=== PATIENT | male | born 1985 | race Caucasian/White ===

== ENCOUNTER 2024-12-29 09:48 | Emergency (ER) | payer MEDICAID, SELFPAY ==
[2024-12-29 10:04] VITALS: BP 120/82; PULSE 77; TEMP 36.8; O2SAT 97; BMI 21.3
--- NOTE | 2024-12-29 10:18 | ED.GENADUL1 ---
HPI HPI - General Adult General Chief complaint: Nausea/Vomiting/Diarrhea Stated complaint: HEADACHE POSSIBLE FLU LIKE SYMPTOMS Time Seen by Provider: 12/29/24 09:58 Source: patient Mode of arrival: walk-in Limitations: no limitations History of Present Illness HPI narrative: 39-year-old male presents for a complaint of nausea and a toothache. The nausea started 3 days ago and he had some diarrhea and some vomiting which is improved. He now has dental pain and notes that he has a bad tooth on his left lower dentition. He has a dentist but has not contacted them. He also missed work. Related Data Previous Rx's ?Medication ?Instructions ?Recorded clindamycin HCl 300 mg capsule 300 mg PO Q6H 10 days #40 caps 12/29/24 ondansetron 4 mg disintegrating 4 mg PO Q6H PRN nausea and 12/29/24 tablet vomiting #20 tabs Allergies Allergy/AdvReac Type Severity Reaction Status Date / Time Penicillins Allergy Intermediate Hives Verified 12/29/24 10:04 Opioid HPI Opioid Management Most Recent Opioid Data: No Data to Display Review of Systems ROS Narrative A ten point review of systems is negative except as noted above. PFSH PFSH Social History Little interest or pleasure in doing things: not at all Feeling down, depressed, or hopeless: not at all Exam Narrative Exam Narrative: Nurses note and vital signs reviewed and patient is not hypoxic. General: The patient appears well and in no apparent distress. Patient is resting comfortably on cart. Skin: Warm, dry, no pallor noted. There is no rash noted. Head: Normocephalic, atraumatic Eye: Normal conjunctiva, no drainage Ears, Nose, Mouth, and Throat: oral mucosa is moist. Nares patent. Many of his teeth have already been removed. Left lower dentition shows an area of erythema to the gingiva and erosion of the tooth down to the gumline. No bleeding or pus present and no swelling to the floor of his mouth. Cardiovascular: Regular Rate and Rhythm Respiratory: Patient is in no distress, no accessory muscle use, lungs are clear to auscultation, no wheezing, rales or rhonchi Back: non-tender GI: Soft and nontender Musculoskeletal: The patient has no evidence of calf tenderness, no pitting edema, symmetrical pulses noted bilaterally Neurological: A&O, normal speech Psychiatric: Cooperative Constitutional Vital Signs, click to edit/add: Last Vital Signs Temp 98.2 F 12/29/24 10:04 Pulse 77 12/29/24 10:04 Resp 18 12/29/24 10:04 BP 120/82 12/29/24 10:04 Pulse Ox 97 12/29/24 10:04 O2 Del Method Room Air 12/29/24 10:04 Course Vital Signs Vital signs: Vital Signs Temperature 98.2 F 12/29/24 10:04 Pulse Rate 77 12/29/24 10:04 Respiratory Rate 18 12/29/24 10:04 Blood Pressure 120/82 12/29/24 10:04 Pulse Oximetry 97 12/29/24 10:04 Oxygen Delivery Method Room Air 12/29/24 10:04 Temperature 98.2 F 12/29/24 10:04 Pulse Rate 77 12/29/24 10:04 Respiratory Rate 18 12/29/24 10:04 Blood Pressure 120/82 12/29/24 10:04 Pulse Oximetry 97 12/29/24 10:04 Oxygen Delivery Method Room Air 12/29/24 10:04 Medical Decision Making MDM Narrative Medical decision making narrative: He was prescribed Zofran and clindamycin and was urged to follow-up with his dentist. He was also given a work note. Treatment diagnosis and follow-up were discussed with the patient. Differential Diagnosis Differential Diagnosis: Viral illness, dental infection Discharge Plan Discharge Chief Complaint: Nausea/Vomiting/Diarrhea Clinical Impression: Dental infection, Viral illness Patient Disposition: Home, Self-Care Time of Disposition Decision: 10:17 Condition: Good Mode of Transportation: Private Vehicle Prescriptions / Home Meds: New ondansetron 4 mg tablet,disintegrating 4 mg PO Q6H PRN (Reason: nausea and vomiting) Qty: 20 0RF clindamycin HCl 300 mg capsule 300 mg PO Q6H 10 Days Qty: 40 0RF Print Language: Turkish Instructions: Dental Abscess (ED), Viral Syndrome (ED) Additional Instructions: Follow-up with your dentist Referrals: Physician,Non-Staff, MD [Primary Care Provider] - 1 week
== END 2024-12-29 10:25 | disposition home or self-care (01) ==
PROVIDERS: Emergency Provider Emergency Medicine
DX: K04.7 Periapical abscess without sinus (principal); B34.9 Viral infection, unspecified; R11.2 Nausea with vomiting, unspecified; R19.7 Diarrhea, unspecified
CPT/HCPCS: 99283